=== PATIENT | male | born 1940 | race Caucasian/White ===

== ENCOUNTER 2017-04-03 19:06 | Emergency (ER) | payer BC ==
[2017-04-03 19:14] VITALS: BP 126/69
--- NOTE | 2017-04-03 19:32 | UC ---
Throat Pain/Nasal Richardson HPI - HPI Summary HPI Summary: cough and fever worsening over the past week have episode of vomiting and diarrhea - History of Current Complaint Chief Complaint: UCRespiratory Stated Complaint: COLD/ COUGH Time Seen by Provider: 04/03/17 19:22 Hx Obtained From: Patient Onset/Duration: Gradual Onset, Lasting Days - 7 Severity: Moderate Cough: Productive Associated Signs & Symptoms: Positive: Fever - Allergies/Home Medications Allergies/Adverse Reactions: Allergies Allergy/AdvReac Type Severity Reaction Status Date / Time Clindamycin Allergy Unknown Rash Verified 04/03/17 19:14 PMH/Surg Hx/FS Hx/Imm Hx Previously Healthy: No Endocrine History: Dyslipidemia Cardiovascular History: Hypertension - Surgical History Surgical History: None - Family History Known Family History: Positive: None - Social History Occupation: Retired Lives: With Family Alcohol Use: None Substance Use Type: None Smoking Status (MU): Never Smoked Tobacco Review of Systems Constitutional: Fever, Chills, Fatigue Skin: Negative Eyes: Negative ENT: Negative Respiratory: Cough Cardiovascular: Negative Gastrointestinal: Vomiting, Diarrhea, Nausea Genitourinary: Negative Motor: Negative Neurovascular: Negative Musculoskeletal: Negative Neurological: Negative Psychological: Negative Is Patient Immunocompromised?: No All Other Systems Reviewed And Are Negative: Yes Physical Exam Triage Information Reviewed: Yes Appearance: No Pain Distress, Well-Nourished, Ill-Appearing - mild Vital Signs: Initial Vital Signs Temp 99.0 F 04/03/17 19:10 Pulse 98 04/03/17 19:10 Resp 12 04/03/17 19:10 BP 126/69 04/03/17 19:10 Pulse Ox 95 04/03/17 19:10 Vital Signs Reviewed: Yes Eye Exam: Normal Eyes: Positive: Conjunctiva Clear ENT Exam: Normal ENT: Positive: Normal ENT inspection, Hearing grossly normal, Pharynx normal, TMs normal, Uvula midline. Negative: Nasal congestion, Nasal drainage, Tonsillar swelling, Tonsillar exudate, Trismus, Muffled voice, Hoarse voice, Sinus tenderness Dental Exam: Normal Neck exam: Normal Neck: Positive: Supple, Nontender Respiratory Exam: Normal Respiratory: Positive: Chest non-tender, Lungs clear, No respiratory distress, No accessory muscle use, Decreased breath sounds Cardiovascular Exam: Normal Cardiovascular: Positive: RRR, No Murmur, Pulses Normal, Brisk Capillary Refill Abdominal Exam: Normal Abdomen Description: Positive: Nontender, No Organomegaly, Soft Musculoskeletal Exam: Normal Musculoskeletal: Positive: Strength Intact, ROM Intact, No Edema Neurological Exam: Normal Neurological: Positive: Alert, Muscle Tone Normal Psychological Exam: Normal Skin Exam: Normal Diagnostics - Radiology No standard instances Xray Interpretation: Positive (See Comments) - Bilateral infiltrates Radiology Interpretation Completed By: ED Physician, Radiologist Throat Pain/Nasal Course/Dx - Course Assessment/Plan: levoqin, zofran, robitussin and codiene, increase fluids, follow with pcp this week - Differential Dx/Diagnosis Provider Diagnoses: Pneumonia Discharge - Discharge Plan Condition: Stable Disposition: HOME Prescriptions: Guaifenesin-Codeine [Cheratussin AC 100-10 mg/5Ml] 5 ml PO Q6H PRN #40 ml MDD 20 PRN Reason: cough Levofloxacin TAB* [Levaquin TAB*] 500 mg PO DAILY #6 tab Patient Education Materials: Clear Liquid Diet (ED), Acute Nausea and Vomiting (ED), Pneumonia (ED) Referrals: Suzy Hall MD [Primary Care Provider] - 2 Days
--- NOTE | 2017-04-03 19:52 | RAD ---
INDICATION: Fever and cough. COMPARISON: There are no prior studies available for comparison. TECHNIQUE: Dual-energy PA and lateral views of the chest were obtained. FINDINGS: Cardiac and mediastinal contours appear normal. There are patchy infiltrates present in the right upper lobe and at both lung bases. No pleural effusion is seen. IMPRESSION: BILATERAL INFILTRATES MOST CONSISTENT WITH PNEUMONIA. RECOMMEND FOLLOW-UP CHEST X-RAYS TO RESOLUTION.
[2017-04-03] MEDS ORDERED: Levofloxacin TAB* 500 MG PO ONE (20:02)
[2017-04-03] MEDS ORDERED: Ondansetron ODT TAB* 4 MG PO ONE ×2 (20:08→20:09)
[2017-04-03] MEDS ORDERED: guaiFENesin/CODIEN 100MG-10MG* 5 ML UDC PO ONE (20:10)
== END 2017-04-03 20:30 | disposition home or self-care (01) ==
LOC: UCEAST 19:06
DX: J18.9 Pneumonia, unspecified organism (principal)
CPT/HCPCS: 71020; 87502; 99213; A9270-GY; G0463

== ENCOUNTER 2017-04-05 19:20 | Emergency (ER) | payer BC ==
[2017-04-05 19:25] VITALS: BP 124/74
--- NOTE | 2017-04-05 20:40 | RAD ---
INDICATION: Fever COMPARISON: April 03, 2017 TECHNIQUE: PA and lateral dual-energy views were obtained. FINDINGS: Bones/Soft Tissues: There are no acute bony findings. Cardiomediastinal: The cardiomediastinal silhouette is normal. Lungs: There are patchy infiltrates in right middle and upper lobes. There are minimal left basilar abnormalities. The appearance unchanged. Pleura: There are no pleural effusions. Other: None IMPRESSION: BILATERAL INFILTRATES WITHOUT SIGNIFICANT RADIOGRAPHIC CHANGE
[2017-04-05 20:41] LABS: Hematocrit 39 % (42-52); Hemoglobin 13.5 g/dl (14.0-18.0); Mean Corpuscular HGB Conc 35 g/dl (31-36); Mean Corpuscular Hemoglobin 31 pg (27-31); Mean Corpuscular Volume 90 fL (80-94); Mean Platelet Volume 8 um3 (7.4-10.4); Red Blood Count 4.34 10^6/ul (4.0-5.4); Red Cell Distribution Width 13 % (10.5-15); White Blood Count 9.9 10^3/ul (3.5-10.8)
[2017-04-05 20:56] LABS: Albumin 3.3 g/dL (3.2-5.2); BUN/Creatinine Ratio 14.8 (8-20); Calcium 9.2 mg/dL (8.6-10.3); EGFR African American 85.5 (>60); EGFR Non-African American 66.5 (>60); Globulin 3.2 g/dL (2-4); Potassium 3.9 mmol/L (3.5-5.0); Total Protein 6.5 g/dL (6.4-8.9)
[2017-04-05 20:57] LABS: Troponin I 0.02 ng/mL (<0.04)
[2017-04-05 21:43] LABS: Urine Bacteria Absent (Absent); Urine Bilirubin Negative (Negative); Urine Glucose Negative (Negative); Urine Nitrite Negative (Negative)
--- NOTE | 2017-04-06 | ED ---
Shahid Krueger Gabriel, scribed for Kyle Dolan on 04/05/17 at 2008 . 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 Pt states he took his temperature twice today cannot get it below 102 degrees Fahrenheit. Two days ago he was diagnosed with PNA at . Patient reports chills, shaking, and productive cough. Patient denies cp and abd pain - History of Current Complaint Chief Complaint: EDFever Time Seen by Provider: 04/05/17 19:57 Hx Obtained From: Patient Onset/Duration: Still Present Timing: Constant Pain Intensity: 0 Pain Scale Used: 0-10 Numeric Associated Signs and Symptoms: Negative - cp and abd pain, Cough, Other: - chills, tremors - Allergy/Home Medications Allergies/Adverse Reactions: Allergies Allergy/AdvReac Type Severity Reaction Status Date / Time Clindamycin Allergy Unknown Rash Verified 04/03/17 19:14 PMH/Surg Hx/FS Hx/Imm Hx Previously Healthy: No Endocrine/Hematology History: Denies: Hx Diabetes Cardiovascular History: Reports: Hx Hypercholesterolemia, Hx Hypertension - on meds Infectious Disease History: No Infectious Disease History: Denies: Traveled Outside the [place] in Last 30 Days - Family History Known Family History: Positive: Hypertension Negative: Cardiac Disease - Social History Alcohol Use: None Substance Use Type: Reports: None Smoking Status (MU): Never Smoked Tobacco Review of Systems Constitutional: Other - shakes Positive: Fever, Chills Negative: Chest Pain Positive: Cough Negative: Abdominal Pain All Other Systems Reviewed And Are Negative: Yes Physical Exam - Summary Physical Exam Summary: Appearance: Well appearing, no pain distress Skin: warm, dry, reflects adequate perfusion Head/face: normal Eyes: EOMI, BONNIE ENT: normal Neck: supple, non-tender Respiratory: CTA, breath sounds present Cardiovascular: RRR, pulses symmetrical Abdomen: non-tender, soft Bowel: present Musculoskeletal: normal, strength/ROM intact Neuro: normal, sensory motor intact, A&Ox3 Triage Information Reviewed: Yes Vital Signs On Initial Exam: Initial Vitals Temp Pulse Resp BP Pulse Ox 99.1 F 83 15 124/74 93 04/05/17 19:21 04/05/17 19:21 04/05/17 19:21 04/05/17 19:21 04/05/17 19:21 Vital Signs Reviewed: Yes - Parviz Coma Scale Coma Scale Total: 15 Diagnostics - Vital Signs Vital Signs Temp Pulse Resp BP Pulse Ox 04/05/17 19:21 99.1 F 83 15 124/74 93 - Laboratory Lab Results: Lab Results 04/05/17 04/05/17 04/05/17 Range/Units 20:20 20:20 20:20 WBC 9.9 (3.5-10.8) 10^3/ul RBC 4.34 (4.0-5.4) 10^6/ul Hgb 13.5 L (14.0-18.0) g/dl Hct 39 L (42-52) % MCV 90 (80-94) fL MCH 31 (27-31) pg MCHC 35 (31-36) g/dl RDW 13 (10.5-15) % Plt Count 260 (150-450) 10^3/ul MPV 8 (7.4-10.4) um3 Neut % (Auto) 81.2 (38-83) % Lymph % (Auto) 5.7 L (25-47) % Dixon % (Auto) 12.8 H (1-9) % Eos % (Auto) 0.2 (0-6) % Baso % (Auto) 0.1 (0-2) % Absolute Neuts (auto) 8.0 H (1.5-7.7) 10^3/ul Absolute Lymphs (auto) 0.6 L (1.0-4.8) 10^3/ul Absolute Monos (auto) 1.3 H (0-0.8) 10^3/ul Absolute Eos (auto) 0 (0-0.6) 10^3/ul Absolute Basos (auto) 0 (0-0.2) 10^3/ul Absolute Nucleated RBC 0.01 10^3/ul Nucleated RBC % 0.1 INR (Anticoag Therapy) (0.89-1.11) APTT (26.0-36.3) seconds Sodium 133 (133-145) mmol/L Potassium 3.9 (3.5-5.0) mmol/L Chloride 97 L (101-111) mmol/L Carbon Dioxide 30 (22-32) mmol/L Anion Gap 6 (2-11) mmol/L BUN 16 (6-24) mg/dL Creatinine 1.08 (0.67-1.17) mg/dL Est GFR ( Amer) 85.5 (>60) Est GFR (Non-Af Amer) 66.5 (>60) BUN/Creatinine Ratio 14.8 (8-20) Glucose 124 H (70-100) mg/dL Lactic Acid (0.5-2.0) mmol/L Calcium 9.2 (8.6-10.3) mg/dL Total Bilirubin 1.00 (0.2-1.0) mg/dL AST 132 H (13-39) U/L ALT 117 H (7-52) U/L Alkaline Phosphatase 98 (34-104) U/L Troponin I 0.02 (<0.04) ng/mL B-Natriuretic Peptide 69 ( - 100) pg/mL Total Protein 6.5 (6.4-8.9) g/dL Albumin 3.3 (3.2-5.2) g/dL Globulin 3.2 (2-4) g/dL Albumin/Globulin Ratio 1.0 (1-3) Urine Color Urine Appearance Urine pH (5-9) Ur Specific [place]argo (1.010-1.030) Urine Protein (Negative) Urine Ketones (Negative) Urine Blood (Negative) Urine Nitrate (Negative) Urine Bilirubin (Negative) Urine Urobilinogen (Negative) Ur Leukocyte Esterase (Negative) Urine WBC (Auto) (Absent) Urine RBC (Auto) (Absent) Urine Bacteria (Absent) Urine Glucose (Negative) Influenza A (Rapid) (Negative) Influenza B (Rapid) (Negative) 04/05/17 04/05/17 04/05/17 Range/Units 20:20 20:20 20:54 WBC (3.5-10.8) 10^3/ul RBC (4.0-5.4) 10^6/ul Hgb (14.0-18.0) g/dl Hct (42-52) % MCV (80-94) fL MCH (27-31) pg MCHC (31-36) g/dl RDW (10.5-15) % Plt Count (150-450) 10^3/ul MPV (7.4-10.4) um3 Neut % (Auto) (38-83) % Lymph % (Auto) (25-47) % Dixon % (Auto) (1-9) % Eos % (Auto) (0-6) % Baso % (Auto) (0-2) % Absolute Neuts (auto) (1.5-7.7) 10^3/ul Absolute Lymphs (auto) (1.0-4.8) 10^3/ul Absolute Monos (auto) (0-0.8) 10^3/ul Absolute Eos (auto) (0-0.6) 10^3/ul Absolute Basos (auto) (0-0.2) 10^3/ul Absolute Nucleated RBC 10^3/ul Nucleated RBC % INR (Anticoag Therapy) 1.02 (0.89-1.11) APTT 30.2 (26.0-36.3) seconds Sodium (133-145) mmol/L Potassium (3.5-5.0) mmol/L Chloride (101-111) mmol/L Carbon Dioxide (22-32) mmol/L Anion Gap (2-11) mmol/L BUN (6-24) mg/dL Creatinine (0.67-1.17) mg/dL Est GFR ( Amer) (>60) Est GFR (Non-Af Amer) (>60) BUN/Creatinine Ratio (8-20) Glucose (70-100) mg/dL Lactic Acid 1.2 (0.5-2.0) mmol/L Calcium (8.6-10.3) mg/dL Total Bilirubin (0.2-1.0) mg/dL AST (13-39) U/L ALT (7-52) U/L Alkaline Phosphatase (34-104) U/L Troponin I (<0.04) ng/mL B-Natriuretic Peptide ( - 100) pg/mL Total Protein (6.4-8.9) g/dL Albumin (3.2-5.2) g/dL Globulin (2-4) g/dL Albumin/Globulin Ratio (1-3) Urine Color Urine Appearance Urine pH (5-9) Ur Specific Largo (1.010-1.030) Urine Protein (Negative) Urine Ketones (Negative) Urine Blood (Negative) Urine Nitrate (Negative) Urine Bilirubin (Negative) Urine Urobilinogen (Negative) Ur Leukocyte Esterase (Negative) Urine WBC (Auto) (Absent) Urine RBC (Auto) (Absent) Urine Bacteria (Absent) Urine Glucose (Negative) Influenza A (Rapid) Negative (Negative) Influenza B (Rapid) Negative (Negative) 04/05/17 Range/Units 21:32 WBC (3.5-10.8) 10^3/ul RBC (4.0-5.4) 10^6/ul Hgb (14.0-18.0) g/dl Hct (42-52) % MCV (80-94) fL MCH (27-31) pg MCHC (31-36) g/dl RDW (10.5-15) % Plt Count (150-450) 10^3/ul MPV (7.4-10.4) um3 Neut % (Auto) (38-83) % Lymph % (Auto) (25-47) % Dixon % (Auto) (1-9) % Eos % (Auto) (0-6) % Baso % (Auto) (0-2) % Absolute Neuts (auto) (1.5-7.7) 10^3/ul Absolute Lymphs (auto) (1.0-4.8) 10^3/ul Absolute Monos (auto) (0-0.8) 10^3/ul Absolute Eos (auto) (0-0.6) 10^3/ul Absolute Basos (auto) (0-0.2) 10^3/ul Absolute Nucleated RBC 10^3/ul Nucleated RBC % INR (Anticoag Therapy) (0.89-1.11) APTT (26.0-36.3) seconds Sodium (133-145) mmol/L Potassium (3.5-5.0) mmol/L Chloride (101-111) mmol/L Carbon Dioxide (22-32) mmol/L Anion Gap (2-11) mmol/L BUN (6-24) mg/dL Creatinine (0.67-1.17) mg/dL Est GFR ( Amer) (>60) Est GFR (Non-Af Amer) (>60) BUN/Creatinine Ratio (8-20) Glucose (70-100) mg/dL Lactic Acid (0.5-2.0) mmol/L Calcium (8.6-10.3) mg/dL Total Bilirubin (0.2-1.0) mg/dL AST (13-39) U/L ALT (7-52) U/L Alkaline Phosphatase (34-104) U/L Troponin I (<0.04) ng/mL B-Natriuretic Peptide ( - 100) pg/mL Total Protein (6.4-8.9) g/dL Albumin (3.2-5.2) g/dL Globulin (2-4) g/dL Albumin/Globulin Ratio (1-3) Urine Color Yellow Urine Appearance Clear Urine pH 6.0 (5-9) Ur Specific L[place] 1.005 L (1.010-1.030) Urine Protein Negative (Negative) Urine Ketones Negative (Negative) Urine Blood 2+ H (Negative) Urine Nitrate Negative (Negative) Urine Bilirubin Negative (Negative) Urine Urobilinogen Negative (Negative) Ur Leukocyte Esterase Negative (Negative) Urine WBC (Auto) Absent (Absent) Urine RBC (Auto) Trace(0-2/hpf) (Absent) Urine Bacteria Absent (Absent) Urine Glucose Negative (Negative) Influenza A (Rapid) (Negative) Influenza B (Rapid) (Negative) Result Diagrams: 04/05/17 20:20 04/05/17 20:20 Lab Statement: Any lab studies that have been ordered have been reviewed, and results considered in the medical decision making process. - Radiology CXR Radiology Interpretation Completed By: Radiologist - BILATERAL INFILTRATES WITHOUT SIGNIFICANT RADIOGRAPHIC CHANGE ED physician has reviewed this radiology report and agrees. - EKG 20:17 Cardiac Rate: NL EKG Rhythm: Sinus Rhythm - NSR at 71 BPM Course/Dx - Course Assessment/Plan: This patient is a 76 year old M presenting to [facility] accompanied by with a chief complaint of a fever since W[employer] M[employer]. Pt was diagnosed with PNA recently and is on ABX. Blood work was taken with no significant abnormalities except for LFTs. An EKG reveals NSR.CXR reveals, per radiologist, BILATERAL INFILTRATES WITHOUT SIGNIFICANT RADIOGRAPHIC CHANGE. to continue the abx. Patient will be discharged and follow up from Dr. Hall (PCP ). The patient is agreeable with this plan. - Febrile Illness Differential Diagnoses: Pneumonia, Sepsis - Diagnoses Provider Diagnoses: PNA (pneumonia), Fever Discharge - Discharge Plan Condition: Stable Disposition: HOME Patient Education Materials: Fever in Adults (ED) Referrals: Suzy Hall MD [Primary Care Provider] - 3 Days Additional Instructions: RETURN TO THE EMERGENCY DEPARTMENT FOR CHANGING OR WORSENING SYMPTOMS. The documentation as recorded by the Shahid burdick Gabriel accurately reflects the service I personally performed and the decisions made by , Kyle Dolan.
== END 2017-04-05 22:03 | disposition home or self-care (01) ==
LOC: ED 19:20
DX: J18.9 Pneumonia, unspecified organism (principal); R50.9 Fever, unspecified
CPT/HCPCS: 36415; 71020; 80053; 81003; 81015; 83605; 83880; 84484; 85025; 85610; 85730; 87040; 87502; 93005; 99282

== ENCOUNTER 2017-10-08 08:54 | Emergency (ER) | payer BC ==
[2017-10-08 09:07] VITALS: BP 155/79
--- NOTE | 2017-10-08 10:33 | UC ---
Skin Complaint HPI - HPI Summary HPI Summary: Patient is a 77-year-old male presenting to the with a small split in the distal end of the third toenail. He states for several years the nail has been somewhat split, but must have caught it on something last evening and split further town. The splint is only approximately 0.2 cm down, not involving the skin or nail bed. He denies any pain. He arrives with a Band-Aid over the area. No history of diabetes. - History of Current Complaint Chief Complaint: UCSkin Time Seen by Provider: 10/08/17 09:57 Stated Complaint: SPLIT NAIL ON TOE Hx Obtained From: Patient Onset/Duration: Sudden Onset Skin Exposure Onset/Duration: Hours Ago Timing: Constant Current Severity: None Pain Intensity: 0 Pain Scale Used: 0-10 Numeric Location: Discrete - middle toe of L foot Aggravating Factor(s): Nothing Associated Signs & Symptoms: Positive: Negative Related History: Trauma - Allergy/Home Medications Allergies/Adverse Reactions: Allergies Allergy/AdvReac Type Severity Reaction Status Date / Time clindamycin Allergy Rash Verified 10/08/17 09:08 Review of Systems Constitutional: Negative Skin: Negative Respiratory: Negative Cardiovascular: Negative Motor: Negative Neurovascular: Negative Musculoskeletal: Negative Psychological: Negative Is Patient Immunocompromised?: No All Other Systems Reviewed And Are Negative: Yes PMH/Surg Hx/FS Hx/Imm Hx Previously Healthy: Yes - Surgical History Surgical History: Yes Surgery Procedure, Year, and Place: [facility] - Family History Known Family History: Positive: None, Hypertension Negative: Cardiac Disease - Social History Occupation: Unemployed Lives: With Family Alcohol Use: None Substance Use Type: None Smoking Status (MU): Never Smoked Tobacco Physical Exam Triage Information Reviewed: Yes Appearance: Well-Appearing, Well-Nourished Vital Signs: Initial Vital Signs Temp 97.8 F 10/08/17 09:04 Pulse 65 10/08/17 09:04 Resp 12 10/08/17 09:04 BP 155/79 10/08/17 09:04 Pulse Ox 100 10/08/17 09:04 Vital Signs Reviewed: Yes Eye Exam: Normal Neck exam: Normal Neck: Positive: Supple Respiratory Exam: Normal Respiratory: Positive: Chest non-tender, Lungs clear Cardiovascular Exam: Normal Cardiovascular: Positive: RRR Musculoskeletal Exam: Normal Musculoskeletal: Positive: Strength Intact Neurological: Positive: Alert Psychological: Positive: Normal Response To Family Skin Exam: Other - small split in the distal tip of the middle nail Course/Dx - Course Course Of Treatment: Patient arrives with a concern over a split in the center of the nail bed. He sustained the injury last evening after he cut caught on something. Denies any pain. There is no skin involvement. No erythema or warmth to the foot. The nail bed is intact. The split involves the distal tip , 0.2 cm. I've discussed the importance of keeping the area covered, however there are no signs of infection in the small split in the tip will grow out within the next few weeks. He has a follow-up with a marble setter at the end of this month. I have also advised him to place a nail strengthener over the area. - Diagnoses Provider Diagnoses: Nail Split Discharge - Sign-Out/Discharge Documenting (check all that apply): Discharge/Admit/Transfer - Discharge Plan Condition: Stable Disposition: HOME Referrals: Suzy Hall MD [Primary Care Provider] - Additional Instructions: Nail hardener/strengthener over the counter Apply this once per week Careful after showers as the nail is more susceptible to tearing Make sure the nail is dry and apply a bandage until the tear is gone Keep the follow up with the marble setter - Billing Disposition and Condition Condition: STABLE Disposition: HOME
== END 2017-10-08 10:25 | disposition home or self-care (01) ==
LOC: UCEAST 08:54
DX: L60.3 Nail dystrophy (principal); Z88.3 Allergy status to other anti-infective agents
CPT/HCPCS: 99211; G0463

== ENCOUNTER 2018-07-18 17:42 | Emergency (ER) | payer BC ==
[2018-07-18 18:23] VITALS: BP 152/82
--- NOTE | 2018-07-18 19:22 | UC ---
Throat Pain/Nasal Richardson HPI - HPI Summary HPI Summary: 78 y/o male presents to the urgent care c/o cold symptoms for the past 3 days Wednesday07/16/2018. Pt report nasal congestion w/ clear nasal discharge, low grade fever, dry cough, mild LEONARD, sinus pressure. He has Hx of pneumonia last year because he allowed symptoms to linger for many days. He states his grand children were Dx with the flu about 3 weeks ago and his PCP Rx Tamiflu prophylactically. He had fever of 101F this morning which resolved w/o taking any medication. Pt denies dizziness, SOB, chest pain, abdominal pain, N/V/D. - History of Current Complaint Chief Complaint: UCGeneralIllness Stated Complaint: SINUS CONGESTION Time Seen by Provider: 07/18/18 19:16 Hx Obtained From: Patient Onset/Duration: Gradual Onset, Lasting Days - 2 days, Still Present, Worse Since - today Severity: Mild Pain Intensity: 2 Pain Scale Used: 0-10 Numeric Cough: Nonproductive Associated Signs & Symptoms: Positive: Sinus Discomfort, Nasal Discharge - clear , Fever - low grade fever today. Negative: Dysphagia, Wheezing - Epiglottits Risk Factors Epiglottis Risk Factors: Negative - Allergies/Home Medications Allergies/Adverse Reactions: Allergies Allergy/AdvReac Type Severity Reaction Status Date / Time clindamycin Allergy Rash Verified 10/08/17 09:08 Home Medications: Home Medications Cholecalciferol (Vitamin D3) [Vitamin D3] 07/18/18 [History] Multivitamins/Minerals TAB* [Theragran/minerals TAB*] 1 tab 07/18/18 [History] PMH/Surg Hx/FS Hx/Imm Hx Previously Healthy: Yes Endocrine History: Dyslipidemia Other Endocrine History: glaucoma Cardiovascular History: Hypertension Respiratory History: Pneumonia - Surgical History Surgical History: Yes Surgery Procedure, Year, and Place: [facility] - Family History Known Family History: Positive: Hypertension Negative: Cardiac Disease - Social History Occupation: Retired Lives: With Family Alcohol Use: None Substance Use Type: None Smoking Status (MU): Never Smoked Tobacco - Immunization History Most Recent Tetanus Shot: unsure Review of Systems All Other Systems Reviewed And Are Negative: Yes Constitutional: Positive: Fever, Chills Skin: Positive: Negative Eyes: Positive: Negative ENT: Positive: Nasal Discharge - clear, Sinus Congestion Respiratory: Positive: Cough - dry Cardiovascular: Positive: Negative Gastrointestinal: Positive: Negative Genitourinary: Positive: Negative Motor: Positive: Negative Neurovascular: Positive: Negative Musculoskeletal: Positive: Myalgia Neurological: Positive: Headache - mild Psychological: Positive: Negative Is Patient Immunocompromised?: No Physical Exam - Summary Physical Exam Summary: VITAL SIGNS: Reviewed. GENERAL: Patient is a well developed and nourished old male who is sitting comfortable in the examining table. Patient is not in any acute respiratory distress. HEAD AND FACE: No signs of trauma. No ecchymosis, hematomas or skull depressions. No sinus tenderness. EYES: PERRLA, EOMI x 2, No injected conjunctiva, no nystagmus. No photophobia. EARS: Hearing grossly intact. Ear canals and tympanic membranes are within normal limits. Nose: edematous and erythematous nasal mucosa w/ clear nasal discharge. MOUTH: Positive no erythema, no tonsillar enlargement. Uvula in midline. NECK: Supple, trachea is midline, Positive anterior cervical lymphadenopathy, no JVD, no carotid bruit, no c-spine tenderness, neck with full ROM. No meningeal signs, no Kernig's or brudzinskis signs. CHEST: Symmetric, no tenderness at palpation LUNGS: Clear to auscultation bilaterally. No wheezing or crackles. CVS: Regular rate and rhythm, S1 and S2 present, no murmurs or gallops appreciated. ABDOMEN: Soft, non-tender. No signs of distention. No rebound no guarding, and no masses palpated. Bowel sounds are normal. EXTREMITIES: FROM in all major joints, no edema, no cyanosis or clubbing. NEURO: Alert and oriented x 3. No acute neurological deficits. Speech is normal and follows commands. SKIN: Dry and warm Triage Information Reviewed: Yes Vital Signs: Initial Vital Signs Temp 99.6 F 07/18/18 18:17 Pulse 85 07/18/18 18:17 Resp 16 07/18/18 18:17 BP 152/82 07/18/18 18:17 Pulse Ox 99 07/18/18 18:17 Throat Pain/Nasal Course/Dx - Course Course Of Treatment: 78 y/o male presents to the urgent care c/o cold symptoms for the past 3 days Wednesday07/16/2018. Pt report nasal congestion w/ clear nasal discharge, low grade fever, dry cough, mild LEONARD, sinus pressure. He has Hx of pneumonia last year because he allowed symptoms to linger for many days. He states his grand children were Dx with the flu about 3 weeks ago and his PCP Rx Tamiflu prophylactically. He had fever of 101F this morning which resolved w/o taking any medication. Pt denies dizziness, SOB, chest pain, abdominal pain, N/V /D. Hx obtained.Pt w/ URI on examination. Influenza A&B ordered: result: negative. Pt advised to take Tyelnol PO to alleviates symptoms. Advised on hand washing. Pt advised to rest, increase fluid intake, eat well and avoid strenuous exercise. If symptoms do not improve or worsen advised to return to the urgent care or f/u with his PCP for further evaluation and treatment. Pt's BP is elevated today advised to decrease salt in diet, monitor BP and f/u with PCP for further management. Pt understood and agreed with plan of care. - Differential Dx/Diagnosis Differential Diagnosis/HQI/PQRI: Influenza, Laryngitis, Mononucleosis, Pharyngitis, Tonsillitis, URI Provider Diagnosis: Upper respiratory infection, Uncontrolled hypertension Discharge - Sign-Out/Discharge Documenting (check all that apply): Patient Departure - d/C home All imaging exams completed and their final reports reviewed: No Studies - Discharge Plan Condition: Stable Disposition: HOME Patient Education Materials: Upper Respiratory Infection (ED) Referrals: Suzy Hall MD [Primary Care Provider] - 2 Days Additional Instructions: 1-Please continue taking Tylenol PO q6-8hrs prn as instructed after meals to alleviate fever, and sore throat. Increase fluid intake, eat well, rest and avoid strenuous exercise 2-If symptoms do not improve or worsen please return to the urgent care or f/u with your PCP in 3 days for further evaluation and treatment. 3- Your BP is elevated today. please decrease salt in your diet, monitor BP and if it continues to be elevated please f/u with your PCP for further management. - Billing Disposition and Condition Condition: STABLE Disposition: Home
[2018-07-18 19:55] LABS: Influenza A Molecular NEGATIVE (Negative); Influenza B Molecular NEGATIVE (Negative)
== END 2018-07-18 20:25 | disposition home or self-care (01) ==
LOC: UCEAST 17:42
DX: J06.9 Acute upper respiratory infection, unspecified (principal); I10 Essential (primary) hypertension; Z87.01 Personal history of pneumonia (recurrent)
CPT/HCPCS: 99212; G0463